=== PATIENT | female | born 1995 | race Asian ===

== ENCOUNTER 2021-06-28 04:27 | Emergency (ER) | payer OTHER, SELFPAY ==
[2021-06-28] MEDS ORDERED: Ventolin HFA Inhaler 60 PUFF INHALER ONE (05:11)
== END 2021-06-28 05:52 | disposition home or self-care (01) ==
LOC: CSHERS 04:27
DX: J06.9 Acute upper respiratory infection, unspecified (principal); Z20.822 Contact with and (suspected) exposure to COVID-19
CPT/HCPCS: 71045; 94664

== ENCOUNTER 2021-08-23 12:11 | Day surgery (SDC) | payer OTHER ==
[2021-08-23 13:35] LABS: Bilirubin Neg (Negative); Blood, Urine 250 (Negative); Clarity Clear (Clear); Glucose, Urine (Dipstick) Normal (Negative); Ketone, Urine Negative (Negative); Leukocyte Negative (Negative); Nitrite Negative (Negative); Protein, Urine (Dipstick) 15 mg/dl (Neg-Trace); Specific Gravity, Urine 1.025 (1.002-1.036); Urobilinogen Normal mg/dL (Less than 2)
[2021-08-23 13:45] LABS: Urine Culture Reflex No No
[2021-08-23 14:08] LABS: Bacteria/HPF None Seen HPF (None Seen); RBC/HPF 21-50 HPF (0-3); Squamous Epithelial 0-3 HPF (0-3); WBC/HPF None Seen HPF (0-3)
[2021-08-23] MEDS ORDERED: hydrALAZINE 20 MG/ML VIAL SLOW IVP PRN (14:50)
[2021-08-23 15:54] VITALS: BMI 42.5
== END 2021-08-23 15:35 | disposition home or self-care (01) ==
LOC: CSHLD/OP 12:11
PROVIDERS: ATTEND Obstetrics & Gynecology
DX: O26.893 Other specified pregnancy related conditions, third trimester (principal); M54.50 Low back pain, unspecified; R10.30 Lower abdominal pain, unspecified; Z3A.36 36 weeks gestation of pregnancy; Z87.440 Personal history of urinary (tract) infections
CPT/HCPCS: 51701; 81001; 99283

== ENCOUNTER 2021-09-10 10:10 | Outpatient (CLI) | payer OTHER ==
[2021-09-10 17:37] LABS: SARS-CoV-2 PCR by NAA Not Detected (NotDetected)
== END 2021-09-10 10:11 | disposition home or self-care (01) ==
LOC: CSHLAB 10:10
PROVIDERS: ATTEND Obstetrics & Gynecology
DX: Z01.812 Encounter for preprocedural laboratory examination (principal); Z20.822 Contact with and (suspected) exposure to COVID-19
CPT/HCPCS: U0003; U0005

== ENCOUNTER 2021-09-12 19:08 | Inpatient (IN) | payer OTHER ==
[~2021-09-12 19:08] MED LIST: Acetaminophen 500 MG TAB PO PRN; Butorphanol Tartrate 1 MG/ML VIAL SLOW IVP PRN; Lidocaine 1% (PF) 30 ML VIAL SC PRN; Misoprostol 200 MCG TAB PR PRN; NS w/ Oxytocin 30 units 500 ML IV SCH; Ondansetron PF 4 MG/2 ML Vial IVP PRN; Promethazine HCl 25 MG/ML VIAL IM PRN; hydrALAZINE 20 MG/ML VIAL SLOW IVP PRN
[2021-09-12 19:36] VITALS: BMI 43.2
[2021-09-12] MEDS ORDERED: Penicillin G Potassium 5 MILL.UNITS VIAL ONE (20:38)
[2021-09-12] MEDS: Lactated Ringer's 1,000 ML IV SCH (20:43)
[2021-09-12 21:04] LABS: Hemoglobin 11.1 g/dL (12.0-15.5); Mean Corpuscular HGB CONC 32.8 g/dL (32.0-36.0); Mean Corpuscular Volume 91.4 fl (81.6-98.3); Mean Platelet Volume 10.2 fl (7.4-10.4); Platelet Count 199 10x3/uL (150-450); RBC Distribution Width 13.5 % (11.5-14.5); White Blood Cell (WBC) Count 11.3 10x3/uL (3.5-10.5)
[2021-09-12] MEDS ORDERED: Fentanyl 2 mcg/Bup 0.1% Cadd 100 ML ONE (21:09)
[2021-09-12 21:33] LABS: Syphilis Antibody Nonreactive (Nonreactive); Syphilis Antibody Index 0.04 S/CO (<1.00 Non-Reactive)
[2021-09-12 21:34] LABS: HIV (1/2) Antibody/Antigen Non-Reactive (NonReactive); HIV 1/2 INDEX 0.06 S/CO (<1.00); Hep B Surf Ag Non-Reactive S/CO (NonReactive)
[2021-09-12 21:47] LABS: HBSAg Index 0.17 S/CO (0-0.99)
[2021-09-12] MEDS ORDERED: Promethazine HCl 25 MG/ML VIAL IM PRN (23:29)
[2021-09-12] MEDS ORDERED: ePHEDrine Sulfate 50 MG/10 ML VIAL SLOW IVP PRN (23:29)
[2021-09-12] MEDS ORDERED: Lactated Ringer's 500 ML IV PRN (23:29)
[2021-09-12] MEDS ORDERED: Naloxone HCl 0.4 mg/ml Vial IVP PRN ×2 (23:29)
[2021-09-12] MEDS ORDERED: Acetaminophen 325 MG TAB PO PRN (23:29)
[2021-09-12] MEDS ORDERED: Hydrocerin (Eucerin) Cream 120 gm Jar TOP PRN (23:29)
[2021-09-12] MEDS ORDERED: diphenhydrAMINE 50 MG/ML VIAL IVP PRN (23:29)
[2021-09-12] MEDS ORDERED: Ondansetron PF 4 MG/2 ML Vial IVP PRN (23:29)
[2021-09-12] MEDS ORDERED: Communication Order-Pharmacy FS SCH (23:30)
[2021-09-12] MEDS ORDERED: Fentanyl 2 mcg/Bupivacaine 0.1% Cassette 100 ML EPIDURAL SCH (23:30)
[2021-09-13] MEDS: Misoprostol 100 MCG TAB VAG SCH ×4 (01:27→19:01)
[2021-09-13] MEDS: Penicillin G 2.5 MILL.units 50 ML IVPB SCH ×4 (02:00→14:56)
[2021-09-13] MEDS ORDERED: NS w/ Oxytocin 30 units 500 ML IVPB SCH (04:00)
[2021-09-13] MEDS: Lactated Ringer's 1,000 ML IV SCH ×3 (06:37→19:11)
[2021-09-13] MEDS ORDERED: Fentanyl 100 MCG/2 ML VIAL ONE ×2 (07:35→13:23)
[2021-09-13] MEDS ORDERED: Bicitra 30 ML UDCUP ONE (12:13)
[2021-09-13 12:46] LABS: RapidComm Collect By LD RN
[2021-09-13 12:49] LABS: RapidComm Collect By LD RN; pH (Cord, venous) 7.304 (7.250-7.350)
[2021-09-13] MEDS ORDERED: diphenhydrAMINE 50 MG/ML VIAL IM PRN (12:52)
[2021-09-13] MEDS ORDERED: Morphine CADD 1 MG/ML CADD IVPB PRN (12:52)
[2021-09-13] MEDS ORDERED: Naloxone HCl 0.4 mg/ml Vial IV PRN (12:52)
[2021-09-13] MEDS ORDERED: diphenhydrAMINE 25 MG CAP PO PRN (12:52)
[2021-09-13] MEDS ORDERED: diphenhydrAMINE 50 MG/ML VIAL IVP PRN (12:52)
[2021-09-13] MEDS ORDERED: Zolpidem Tartrate 5 MG TAB PO PRN (12:52)
[2021-09-13] MEDS ORDERED: Ondansetron HCl/PF 4 MG/2 ML Vial IVP PRN (12:52)
[2021-09-13] MEDS ORDERED: Promethazine HCl 25 MG/ML VIAL IM PRN (12:52)
[2021-09-13] MEDS ORDERED: L&D-Morphine 4 MG/ML VIAL SLOW IVP PRN (12:52)
[2021-09-13] MEDS ORDERED: Meperidine HCl/PF 25 MG/ML VIAL SLOW IVP PRN (12:52)
[2021-09-13] MEDS ORDERED: Ondansetron PF 4 MG/2 ML Vial IVP PRN (12:52)
[2021-09-13] MEDS ORDERED: Communication Order-Pharmacy FS PRN (13:00)
[2021-09-13] MEDS ORDERED: Bisacodyl 10 MG SUPP PR PRN (13:23)
[2021-09-13] MEDS ORDERED: Boostrix 0.5 ML (Tdap) VIAL IM ONE (13:23)
[2021-09-13] MEDS ORDERED: Ondansetron PF 4 MG/2 ML Vial ONE (13:23)
[2021-09-13] MEDS ORDERED: Dexamethasone 4 mg/ml Vial ONE (13:23)
[2021-09-13] MEDS ORDERED: Lanolin Ointment 7 GM TUBE TOP PRN (13:23)
[2021-09-13] MEDS ORDERED: Succinylcholine 200 MG/10 ml SYRINGE FS ONE (13:23)
[2021-09-13] MEDS ORDERED: PROPOFOL 20 ML ONE (13:23)
[2021-09-13] MEDS ORDERED: hydrALAZINE 20 MG/ML VIAL SLOW IVP PRN (13:23)
[2021-09-13] MEDS ORDERED: Ketorolac Tromethamine 30 MG/ML VIAL ONE (13:24)
[2021-09-13] MEDS ORDERED: Morphine PF 10 MG/10 ML VIAL ONE (13:25)
[2021-09-13] MEDS ORDERED: Acetaminophen 325 MG TAB PO PRN (13:27)
[2021-09-13] MEDS ORDERED: Morphine 50 MG in Sodium Chloride 0.9% 45 ML IVPB SCH (14:00)
[2021-09-13] MEDS ORDERED: Fentanyl 2 mcg/Bup 0.1% Cadd 0 ML ONE (15:55)
[2021-09-13] MEDS ORDERED: ceFAZolin 2 GM/DEX 5% 100 ML BAG IVPB SCH (20:30)
[2021-09-13] MEDS: Misoprostol 200 MCG TAB PO SCH (21:17)
[2021-09-13] MEDS: Docusate Calcium (SURFAK) 240 MG CAP PO SCH (21:17)
[2021-09-13] MEDS: CEFAZOLIN 2 GM in Premix Bag 1 BAG IVPB SCH (21:17)
[2021-09-14] MEDS: Misoprostol 200 MCG TAB PO SCH ×3 (02:49→14:27)
[2021-09-14] MEDS: Lactated Ringer's 1,000 ML IV SCH ×3 (02:50→18:44)
[2021-09-14] MEDS: CEFAZOLIN 2 GM in Premix Bag 1 BAG IVPB SCH (04:28)
[2021-09-14 06:54] LABS: Hemoglobin 9.4 g/dL (12.0-15.5); Mean Corpuscular Hemoglobin 29.6 pg (27.0-33.0); Mean Corpuscular Volume 92.5 fl (81.6-98.3); Mean Platelet Volume 10.1 fl (7.4-10.4); Platelet Count 184 10x3/uL (150-450); RBC Distribution Width 13.7 % (11.5-14.5); Red Blood Cell (RBC) Count 3.18 10x6/uL (3.90-5.03); White Blood Cell (WBC) Count 14.1 10x3/uL (3.5-10.5)
[2021-09-14] MEDS: Docusate Calcium (SURFAK) 240 MG CAP PO SCH ×2 (08:34→22:00)
[2021-09-14] MEDS: Ibuprofen 800 MG TAB PO PRN ×2 (08:34→22:00)
[2021-09-14] MEDS: Prenatal Vitamin 1 TAB PO SCH (08:35)
[2021-09-14] MEDS: Simethicone Chewable 80 MG TAB PO PRN ×2 (14:28→22:00)
[2021-09-14] MEDS: HYDROcodone/Acetaminophen 5/325 mg Tablet PO PRN (15:34)
[2021-09-15] MEDS: HYDROcodone/Acetaminophen 5/325 mg Tablet PO PRN (02:21)
[2021-09-15] MEDS: Lactated Ringer's 1,000 ML IV SCH ×2 (05:07→14:12)
[2021-09-15] MEDS: Simethicone Chewable 80 MG TAB PO PRN (06:19)
[2021-09-15] MEDS: Ibuprofen 800 MG TAB PO PRN ×2 (06:19→14:10)
[2021-09-15 07:52] VITALS: BP 120/56; TEMP 97.6
[2021-09-15] MEDS: Docusate Calcium (SURFAK) 240 MG CAP PO SCH (08:38)
[2021-09-15] MEDS: Prenatal Vitamin 1 TAB PO SCH (08:38)
[2021-09-15] MEDS ORDERED: Prenatal Vitamin 1 TAB PO SCH (09:00)
== END 2021-09-15 16:35 | disposition home or self-care (01) | DRG 788 ==
LOC: CSHLD 19:08 → CSHPP 09-13 16:53
PROVIDERS: ADMIT Obstetrics & Gynecology; ATTEND Obstetrics & Gynecology
PROC: 10D00Z1 Extraction of Products of Conception, Low, Open Approach (ICD-10-PCS; principal; 2021-09-13)
PROC: 10907ZC Drainage of Amniotic Fluid, Therapeutic from Products of Conception, Via Natural or Artificial Opening (ICD-10-PCS; 2021-09-13)
DX: O62.1 Secondary uterine inertia (principal); Z37.0 Single live birth; Z3A.39 39 weeks gestation of pregnancy
CPT/HCPCS: 36415; 51702; 82805; 85027; 86780; 86850; 86900; 86901; 87340; 87389; J0690; J1100; J1885; J2270; J2274; J2405; J2540; J2590; J2704; J3010; J7120; U0003; U0005